=== PATIENT | female | born 1970 | race African-American/Black ===

== ENCOUNTER 2018-09-23 08:37 | Observation (INO) | payer BC ==
[2018-09-23] MEDS ORDERED: Nitroglycerin 2% Ointment 1 INCH/1 GM Packet ONE (09:36)
[2018-09-23] MEDS ORDERED: Ondansetron PF 4 MG/2 ML Vial IVP PRN (11:13)
[2018-09-23] MEDS ORDERED: Ondansetron ODT 4 MG TAB PO PRN (11:13)
[2018-09-23] MEDS ORDERED: Senokot S 8.6-50 MG TAB PO PRN (11:13)
[2018-09-23] MEDS ORDERED: Dextrose 5% in Water 1,000 ML IV PRN (11:15)
[2018-09-23] MEDS ORDERED: Insulin Regular 300 UNITS/3 ML VIAL SC PRN ×2 (11:15)
[2018-09-23] MEDS ORDERED: Dextrose 50% Abboject 50 ML SYRINGE SLOW IVP PRN (11:15)
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
[2018-09-23 13:37] LABS: Lactic Acid 2.2 mmol/L (0.5-2.2)
[2018-09-23 13:41] LABS: Magnesium 1.9 mg/dL (1.6-2.6)
[2018-09-23 13:44] LABS: Troponin I 0.016 ng/mL (< 0.028)
--- NOTE | 2018-09-23 13:46 | ULT ---
BILATERAL LOWER EXTREMITY VENOUS DOPPLER ULTRASOUND: HISTORY: Right lower extremity pain. TECHNIQUE: Lanier-scale ultrasound with color-flow and spectral Doppler imaging of the deep venous systems of the lower extremities was performed bilaterally. FINDINGS: There is good flow, compression, and augmentation noted in the common femoral, femoral, deep femoral, popliteal, posterior tibial, and greater saphenous veins on either side. IMPRESSION: No evidence of deep venous thrombosis in either lower extremity. POS: [facility]
[2018-09-23] MEDS ORDERED: Potassium Chloride 20 MEQ TAB PO SCH (15:00)
[2018-09-23 15:52] VITALS: BMI 37.3
[2018-09-23] MEDS: Sodium Chloride 0.9% 1,000 ML IV SCH (16:42)
[2018-09-23 17:18] LABS: Amphetamine Not Detected (NotDetected); Barbiturates Screen Not Detected (NotDetected); Benzodiazepine Screen Not Detected (NotDetected); Cocaine Metabolite Screen Not Detected (NotDetected); Medtox Reader # READER 1; Methadone Not Detected (NotDetected); Methamphetamine Not Detected (NotDetected); Opiate Screen Detected (NotDetected); Oxycodone Screen Not Detected (NotDetected); Phencyclidine (PCP) Not Detected (NotDetected); THC/Cannabinoid Screen Not Detected (NotDetected); Tricyclic Screen Not Detected (NotDetected)
[2018-09-23 17:19] LABS: Medtox Control Line Valid? VALID (VALID)
[2018-09-23 17:21] LABS: Bilirubin Negative (Negative); Blood, Urine Trace (Negative); Clarity Clear (Clear); Glucose, Urine (Dipstick) 300 mg/dL (Negative); Leukocyte Negative Leu/uL (Negative); Nitrite Negative (Negative); Protein, Urine (Dipstick) 300 mg/dL (Neg-Trace); RBC/HPF 0-3 HPF (0-3); Squamous Epithelial 0-3 HPF (0-3); Urobilinogen Normal mg/dL (Less than 2); WBC/HPF 0-3 HPF (0-3)
[2018-09-23 17:36] LABS: Bacteria/HPF Rare-Few HPF (None Seen); Urine Culture Reflex No No
[2018-09-23] MEDS: HYDROcodone/Acetaminophen 5/325 mg Tablet PO PRN (18:39)
[2018-09-23] MEDS ORDERED: Gabapentin 100 MG CAP PO SCH (21:00)
[2018-09-23] MEDS ORDERED: Pravastatin Sodium 40 MG TAB PO SCH (21:00)
[2018-09-23] MEDS: Famotidine/PF 20 mg/2ml Vial SLOW IVP SCH (21:25)
[2018-09-24 05:15] LABS: #Basophils 0.1 thou/uL (0.0-0.2); #Eosinphils 0.2 thou/uL (0.0-0.7); #Lymphocytes 3.8 thou/uL (1.20-3.40); #Monocytes 0.5 thou/uL (0.11-0.59); #Neutrophils 3.1 thou/uL (1.40-6.50); %Basophils 0.9 % (0.0-1.0); %Eosinophils 2.9 % (0.0-10.0); %Monocytes 6.9 % (0.0-10.0); %Neutrophils 40.3 % (42.0-75.0); Hemoglobin 12.2 g/dL (12.0-16.0); Mean Corpuscular HGB CONC 34.6 g/dL (32.0-36.0); Mean Corpuscular Hemoglobin 31.6 pg (27.0-31.0); Mean Corpuscular Volume 91.1 fL (78.0-98.0); Mean Platelet Volume 8.8 fL (7.4-10.4); Platelet Count 235 thou/uL (130-400); RBC Distribution Width 11.8 % (11.5-14.5); Red Blood Cell (RBC) Count 3.87 mill/uL (4.20-5.40); White Blood Cell (WBC) Count 7.7 thou/uL (4.8-10.8)
[2018-09-24 05:36] LABS: Anion Gap 10 mmol/L (10-20); BUN (Urea Nitrogen) 13 mg/dL (7.0-18.7); Calc. Creatinine Clearance 91 mL/min (70-130); Carbon Dioxide 24 mmol/L (22-29); Cardiac Risk 5.7 (Less than 4.5); Chloride 108 mmol/L (98-107); Cholesterol 155 mg/dl (< 200 Desired); Estimated GFR-MDRD 63; Glucose 149 mg/dL (70-105); HDL Cholesterol 27 mg/dL (>60 Neg Risk); LDL Cholesterol, Calculated 80 mg/dL; Potassium 3.4 mmol/L (3.5-5.1); Sodium 139 mmol/L (136-145); Triglycerides 239 mg/dL (Less than 150)
[2018-09-24] MEDS: Sodium Chloride 0.9% 1,000 ML IV SCH (08:04)
[2018-09-24] MEDS: Famotidine/PF 20 mg/2ml Vial SLOW IVP SCH (08:04)
[2018-09-24] MEDS ORDERED: Amlodipine 5 mg/Benazepril 20 mg CAP PO SCH (09:00)
[2018-09-24] MEDS ORDERED: Hydrochlorothiazide 25 MG TAB PO SCH (09:00)
[2018-09-24] MEDS ORDERED: Pot Chloride/Pot Bicarb/Cit Ac 25 mEq Effervescent Tablet PO SCH ×2 (09:15→12:30)
[2018-09-24] MEDS: HYDROcodone/Acetaminophen 5/325 mg Tablet PO PRN (12:12)
[2018-09-24] MEDS ORDERED: Potassium Bicarbonate/Cit Ac 25 MEQ TAB PO SCH (13:30)
[2018-09-24] MEDS ORDERED: ADENOSINE 60 MG/20 ML VIAL ONE (13:51)
--- NOTE | 2018-09-24 14:36 | NM ---
EXAM: Nuclear medicine cardiac perfusion examination with ejection fraction HISTORY: Chest pain TECHNIQUE: Rest images: 10.7 mCi technetium 99m sestamibi Stress images: 33.0 mCi of technetium 9M sestamibi; Adenosine COMPARISON: None FINDINGS: Tomographic images: No fixed or reversible perfusion defects. Gated images: Normal wall motion and ejection fraction of 54%. EDV: 91 mL LHR: 0.25 TID: 1.0 IMPRESSION: No evidence of ischemia
[2018-09-24 15:44] VITALS: BP 138/81; TEMP 98.6
--- NOTE | 2018-09-28 14:59 | EKG ---
Test Reason : Blood Pressure : / mmHG Vent. Rate : 046 BPM Atrial Rate : 046 BPM P-R Int : 144 ms QRS Dur : 080 ms QT Int : 456 ms P-R-T Axes : 027 004 -28 degrees QTc Int : 399 ms Marked sinus bradycardia Minimal voltage criteria for LVH, may be normal variant T wave abnormality, consider anterolateral ischemia Abnormal ECG Confirmed by OFE CLANCY, ANGEL ([id number]), video editor NUNU BEAR ([id number]) on 09/28/2018 2:58:42 PM Referred By: Confirmed By:ANGEL THAKUR MD
--- NOTE | 2018-09-28 14:59 | EKG ---
Test Reason : Blood Pressure : / mmHG Vent. Rate : 051 BPM Atrial Rate : 051 BPM P-R Int : 120 ms QRS Dur : 070 ms QT Int : 426 ms P-R-T Axes : 020 004 -29 degrees QTc Int : 392 ms Sinus bradycardia Nonspecific T wave abnormality Abnormal ECG Confirmed by ANGEL THAKUR MD ([id number]), purchase request editor NUNU BEAR ([id number]) on 09/28/2018 2:58:41 PM Referred By: Confirmed By:ANGEL THAKUR MD
== END 2018-09-24 16:42 | disposition home or self-care (01) ==
LOC: ERS 08:37 → ERHOLD 10:10 → INTOOBSV 10:10 → 2SW 14:20
PROVIDERS: ADMIT Internal Medicine; ATTEND Internal Medicine
DX: R07.81 Pleurodynia (principal); M79.651 Pain in right thigh; I10 Essential (primary) hypertension; E11.9 Type 2 diabetes mellitus without complications; E78.5 Hyperlipidemia, unspecified; F17.210 Nicotine dependence, cigarettes, uncomplicated; M54.5 Low back pain; G89.29 Other chronic pain; Z79.4 Long term (current) use of insulin; Z79.82 Long term (current) use of aspirin; Z79.899 Other long term (current) drug therapy
CPT/HCPCS: 36415; 36416; 78452; 80048; 80061; 80306; 81001; 82550; 83605; 83735; 85025; 93005; 93017; 93970; 96361; 96374; 96376; A9500; G0378; J0153; J1815; S0028

== ENCOUNTER 2023-09-07 08:42 | Day surgery (SDC) | payer MEDICARE ==
[2023-09-07 09:08] VITALS: BP 143/78; TEMP 97.8
[2023-09-07] MEDS ORDERED: diphenhydrAMINE 50 MG/ML VIAL ONE (09:19)
[2023-09-07] MEDS: diphenhydrAMINE 50 MG/ML VIAL IVP SCH (09:20)
[2023-09-07] MEDS: Sodium Ferric Gluconate 125 MG in Sodium Chloride 0.9% 100 ML IVPB SCH (09:37)
== END 2023-09-07 11:46 | disposition home or self-care (01) ==
LOC: ONC/OP 08:42
PROVIDERS: ATTEND Student in an Organized Health Care Education/Training Program
DX: D50.9 Iron deficiency anemia, unspecified (principal)
CPT/HCPCS: 96365; 96375; J1200; J2916